=== PATIENT | male | born 1965 | race Caucasian/White ===

== ENCOUNTER 2018-10-18 07:54 | Day surgery (SDC) | payer OTHER, BC ==
[2018-10-18] MEDS ORDERED: PROPOFOL 40 ML (10:20)
== END 2018-10-18 14:29 | disposition home or self-care (01) ==
LOC: GIL 07:54
DX: Z12.11 Encounter for screening for malignant neoplasm of colon (principal); K64.8 Other hemorrhoids; D12.5 Benign neoplasm of sigmoid colon; D12.3 Benign neoplasm of transverse colon; I10 Essential (primary) hypertension; E78.5 Hyperlipidemia, unspecified; E66.9 Obesity, unspecified; Z68.37 Body mass index [BMI] 37.0-37.9, adult
CPT/HCPCS: 45380; 88305